=== PATIENT | female | born 1995 | race Caucasian/White ===

== ENCOUNTER 2021-09-18 17:51 | Emergency (ER) | payer BC, SELFPAY ==
[2021-09-18] MEDS ORDERED: Acetaminophen 500 MG TAB ONE (19:33)
[2021-09-18] MEDS ORDERED: Ketorolac Tromethamine 30 MG/ML VIAL ONE (19:33)
[2021-09-18] MEDS ORDERED: Dexamethasone 4 MG TAB ONE (19:33)
[2021-09-18 21:42] LABS: SARS-CoV-2 NAA Rapid Test Not Detected (NotDetected)
== END 2021-09-18 22:10 | disposition home or self-care (01) ==
LOC: ERS 17:51
DX: J02.9 Acute pharyngitis, unspecified (principal); R42 Dizziness and giddiness; F17.210 Nicotine dependence, cigarettes, uncomplicated; Z20.822 Contact with and (suspected) exposure to COVID-19
CPT/HCPCS: 0240U; 87081; 87430; 93005; 96374; J1885; J8540